=== PATIENT | male | born 1950 | race Caucasian/White ===

== ENCOUNTER 2016-07-24 10:08 | Emergency (ER) | payer MEDICARE, OTHER ==
--- NOTE | 2016-07-27 17:50 | ER ---
ADMIT: 07/24/2016 RM/LOC: ER [facility] MR#: [id number] [address] [address] [address] [address] [place] [address] Emergency Room Report SEX: M AGE: 65 : 1950 DATE: 07/24/2016 ADDENDUM: This patient comes to the ER with his because at 4:30 this morning he woke up short of breath and he has continued to be short of breath. His checked his O2 saturation at home and was 82%. He did start having sinus-type symptoms 2 days ago. On physical exam, his pulse was 110, his O2 saturation was 91% on room air and he was not in respiratory distress, but he did not have a lot of movement when he was breathing, decreased sounds throughout. I gave him Decadron 15 mg IV. I did do sepsis protocol on him due to his elevated pulse and low O2 saturation. His white count was 5.5. CMP was normal except for his glucose being elevated, he does have diabetes; lactic acid was 0.7. Chest x-ray was negative for pneumonia. When I went to re-evaluate him, he was feeling quite a bit better after the breathing treatments and the Decadron. I gave him Zithromax p.o., we did do a walking O2 saturation on him and he had no difficulty getting up and his O2 saturation was above 90%. We will have him follow up with Dr. Harris. I wrote a prescription for Zithromax and also for prednisone. Please see my T-sheet. DIAGNOSIS: Chronic obstructive pulmonary disease exacerbation. SAE Lynch / Javier Negro MD / modl JOB #: [id number] CC: Javier Negro MD, Attending Physician Nitin Harris MD, Family Physician
== END 2016-07-24 14:19 | disposition home or self-care (01) ==
LOC: ER 10:08
DX: J44.1 Chronic obstructive pulmonary disease with (acute) exacerbation (principal); E11.9 Type 2 diabetes mellitus without complications; Z79.4 Long term (current) use of insulin; Z79.899 Other long term (current) drug therapy

== ENCOUNTER → 2016-08-24 | Outpatient (CLI) | payer MEDICARE, OTHER | END | disposition home or self-care (01) | LOC: NUE 09:30 | DX: E11.9 Type 2 diabetes mellitus without complications (principal); Z71.3 Dietary counseling and surveillance | CPT/HCPCS: 258 ==

== ENCOUNTER → 2016-09-03 | Outpatient (CLI) | payer MEDICARE, OTHER | END | disposition home or self-care (01) | LOC: RAD.S 10:00 | DX: R13.12 Dysphagia, oropharyngeal phase (principal) ==

== ENCOUNTER 2016-09-10 07:23 | Day surgery (SDC) | payer MEDICARE, OTHER ==
[~2016-09-10] VITALS: Ht 188 cm; Wt 74.9 kg
--- NOTE | 2016-09-17 10:24 | OR ---
ADMIT: 09/10/2016 RM/LOC: [facility] MR#: [id number] [address] [place] [address] [place] [address] Operative/Delivery Room Report SEX: M AGE: 65 : 1950 SURGERY DATE: 09/10/2016 SURGEON: Lisandro Wang MD PRE-PROCEDURE DIAGNOSIS: Weight loss of unknown origin. POSTPROCEDURE DIAGNOSES: 1. Small type 1 sliding hiatal hernia. Otherwise, normal upper gastroscopy. 2. Poor bowel prep. PROCEDURE: EGD and exam under anesthesia. INDICATIONS: The patient is a 65-year-old with advanced neuromuscular disease, having some dysphagia complaints and significant weight loss, who presents for upper and lower endoscopy to rule out occult malignancy. DESCRIPTION OF PROCEDURE: The patient was taken to the endoscopy suite, IV sedation was given, placed in left lateral decubitus position. A bite-block was placed in the patient's mouth. The gastroscope was introduced down the oropharynx, down the esophagus, into the stomach, through the pylorus to the duodenum. The pylorus was nonobstructive. The duodenal bulb, second and third portions of the duodenum was normal with no pathology. The stomach also appeared normal with no pathology, no ulcers, no masses. On retroflexion view, there was a very small type 1, 1 cm sliding hiatal hernia. On exam of the GE junction, there was no esophagitis. There was no obstructive pathology within the esophagus. No inflammation. Remainder of the mid and upper esophagus was normal. The gastroscope was removed. Next, the colonoscope was introduced in the rectum where there was a large amount of solid stool, unable to safely do the colonoscopy surveillance. We will likely order a Gastrografin postprocedure. Lisandro Wang MD/ lesa JOB #: [id number] CC: Lisandro Wang, Attending Physician Nitin Harris, Family Physician
== END 2016-09-10 10:58 | disposition home or self-care (01) ==
LOC: SSS 07:23
PROC: 0DJD8ZZ Inspection of Lower Intestinal Tract, Via Natural or Artificial Opening Endoscopic (ICD-10-PCS; principal; 2016-09-10)
PROC: 0DJ08ZZ Inspection of Upper Intestinal Tract, Via Natural or Artificial Opening Endoscopic (ICD-10-PCS; principal; 2016-09-10)
DX: K44.9 Diaphragmatic hernia without obstruction or gangrene (principal); G71.0 Muscular dystrophy; E11.9 Type 2 diabetes mellitus without complications; J45.909 Unspecified asthma, uncomplicated; K21.9 Gastro-esophageal reflux disease without esophagitis; Z79.899 Other long term (current) drug therapy; Z79.891 Long term (current) use of opiate analgesic; Z98.890 Other specified postprocedural states; Z88.8 Allergy status to other drugs, medicaments and biological substances